=== PATIENT | female | born 1950 | race Caucasian/White ===

== ENCOUNTER → 2017-03-31 | Outpatient (CLI) | payer MEDICARE ==
[2017-03-31 12:38] VITALS: BP 109/62
== END | disposition home or self-care (01) ==
LOC: MSC 12:29
PROVIDERS: ATTEND Internal Medicine
DX: J96.91 Respiratory failure, unspecified with hypoxia (principal); D69.6 Thrombocytopenia, unspecified; I27.0 Primary pulmonary hypertension; I51.7 Cardiomegaly; I50.30 Unspecified diastolic (congestive) heart failure; J44.1 Chronic obstructive pulmonary disease with (acute) exacerbation; F32.9 Major depressive disorder, single episode, unspecified; F17.200 Nicotine dependence, unspecified, uncomplicated; Z79.01 Long term (current) use of anticoagulants